=== PATIENT | female | born 1955 | race Caucasian/White ===

== ENCOUNTER → 2023-05-15 11:07 | Outpatient (REF) | payer MEDICARE, OTHER, SELFPAY ==
[2023-05-15 12:19] LABS: % Basophils 0.9 % (0-2); % Eosinophils 5.9 % (0-6); % Immature Granulocytes 0.2 % (0-0.5); % Lymphocytes 33.7 % (20.5-51.1); % Monocytes 8.8 % (1.7-9.3); % Neutrophils 50.5 % (42.2-75.2); Absolute Basophils 0.1 10^3/uL (0-0.2); Absolute Eosinophils 0.5 10^3/uL (0-0.7); Absolute Lymphocytes 2.9 10^3/uL (1.2-3.4); Absolute Monocytes 0.8 10^3/uL (0.1-0.6); Absolute Neutrophils 4.3 10^3/uL (1.4-6.5); Hemoglobin 14.5 g/dL (12.0-16.0); Mean Corpuscular Hgb 29.8 pg (27.0-31.0); Mean Corpuscular Volume 90.5 fL (81.0-99.0); Mean Platelet Volume 10.3 fL (7.4-10.4); Nucleated Red Blood Cells % 0 %; Platelet Count 279 10^3/uL (130-400); Red Blood Cell Count 4.86 10^6/uL (4.20-5.40); Red Cell Dist. Width 13.4 % (11.5-14.5); White Blood Cell Count 8.5 10^3/uL (4.8-10.8)
[2023-05-15 13:30] LABS: Erythrocyte Sed Rate 15 mm/hour (0-20)
== END ==
LOC: REG 11:07
PROVIDERS: ATTENDING PHYSICIAN Physician Assistant; FAMILY PHYSICIAN Family Medicine
DX: Z96.652 Presence of left artificial knee joint (principal); Z96.651 Presence of right artificial knee joint; M54.16 Radiculopathy, lumbar region
CPT/HCPCS: 36415; 85025; 85652; 86140

== ENCOUNTER → 2023-09-27 12:43 | Outpatient (REF) | payer MEDICARE, OTHER, SELFPAY | LOC: RCS 12:43 | PROVIDERS: ATTENDING PHYSICIAN Internal Medicine; FAMILY PHYSICIAN Nurse Practitioner Family | DX: I45.2 Bifascicular block (principal); I10 Essential (primary) hypertension | CPT/HCPCS: 93306 ==

== ENCOUNTER → 2024-04-03 14:00 | Outpatient (REF) | payer MEDICARE, OTHER, SELFPAY | LOC: HWWDC 14:00 | PROVIDERS: ATTENDING PHYSICIAN Nurse Practitioner Family | DX: Z12.31 Encounter for screening mammogram for malignant neoplasm of breast (principal) | CPT/HCPCS: 77063; 77067 ==

== ENCOUNTER → 2024-04-16 12:44 | Outpatient (REF) | payer MEDICARE, OTHER, SELFPAY | LOC: HWRAD 12:44 | PROVIDERS: ATTENDING PHYSICIAN Nurse Practitioner Family | DX: R42 Dizziness and giddiness (principal); R26.89 Other abnormalities of gait and mobility | CPT/HCPCS: 70450 ==

== ENCOUNTER → 2024-05-15 14:17 | Outpatient (REF) | payer MEDICARE, OTHER, SELFPAY | LOC: RCS 14:17 | PROVIDERS: ATTENDING PHYSICIAN Nurse Practitioner Gerontology; FAMILY PHYSICIAN Nurse Practitioner Family | DX: I63.81 Other cerebral infarction due to occlusion or stenosis of small artery (principal) | CPT/HCPCS: 93306 ==

== ENCOUNTER → 2024-05-17 10:37 | Outpatient (REF) | payer MEDICARE, OTHER, SELFPAY | LOC: RAD 10:37 | PROVIDERS: ATTENDING PHYSICIAN Nurse Practitioner Gerontology; REFERRING PHYSICIAN Nurse Practitioner Family | DX: R42 Dizziness and giddiness (principal); I63.81 Other cerebral infarction due to occlusion or stenosis of small artery | CPT/HCPCS: 93880 ==

== ENCOUNTER → 2024-05-29 08:46 | Outpatient (REF) | payer MEDICARE, OTHER, SELFPAY ==
[2024-05-29 09:43] LABS: HDL Cholesterol 85 mg/dl; LDL Cholesterol, Calculated 123 mg/dl; Total Cholesterol 230 mg/dl (50-199); Triglyceride 110 mg/dl (10-149); Very Low Density Lipoprotein 22 mg/dl (0-30)
== END ==
LOC: REG 08:46
PROVIDERS: ATTENDING PHYSICIAN Nurse Practitioner Gerontology; FAMILY PHYSICIAN Nurse Practitioner Family
DX: E78.00 Pure hypercholesterolemia, unspecified (principal)
CPT/HCPCS: 36415; 80061

== ENCOUNTER → 2024-07-23 14:21 | Outpatient (REF) | payer MEDICARE, OTHER, SELFPAY | LOC: RAD 14:21 | PROVIDERS: ATTENDING PHYSICIAN Nurse Practitioner Family | DX: J40 Bronchitis, not specified as acute or chronic (principal) | CPT/HCPCS: 71046 ==

== ENCOUNTER → 2024-10-14 14:03 | Outpatient (REF) | payer MEDICARE, OTHER, SELFPAY | LOC: HWRAD 14:03 | PROVIDERS: ATTENDING PHYSICIAN Obstetrics & Gynecology; FAMILY PHYSICIAN Nurse Practitioner Family | DX: R10.2 Pelvic and perineal pain (principal) | CPT/HCPCS: 76830; 76856 ==

== ENCOUNTER 2024-12-11 15:33 | Emergency (ER) | payer MEDICARE, OTHER, SELFPAY ==
[2024-12-11] VITALS (7 sets, daily range): BP systolic 135–198; BP diastolic 62–84
[2024-12-11 16:17] LABS: Hematocrit 44.1 % (37.0-47.0); Hemoglobin 14.3 g/dL (12.0-16.0); Mean Corp Hgb Conc. 32.4 g/dL (33.0-37.0); Mean Corpuscular Volume 92.5 fL (81.0-99.0); Nucleated Red Blood Cells % 0 %; Platelet Count 249 10^3/uL (130-400); Red Cell Dist. Width 13.7 % (11.5-14.5)
[2024-12-11 16:42] LABS: ALT (SGPT) 19 U/L (0-35); AST (SGOT) 24 U/L (14-36); Albumin 4.7 g/dl (3.5-5.0); Alkaline Phosphatase 92 U/L (38-126); Blood Urea Nitrogen 16 mg/dl (7-17); Calcium 9.4 mg/dl (8.4-10.2); Carbon Dioxide 29 mmol/L (22-30); Chloride 102 mmol/L (98-107); Glucose 85 mg/dl (70-99); Potassium 4.4 mmol/L (3.5-5.1); Sodium 135 mmol/L (135-145); Total Protein 8.1 g/dl (6.3-8.2); eGFR > 60.00
[2024-12-11 16:46] LABS: Troponin I 0.013 ng/ml
--- NOTE | 2024-12-11 18:52 | ED.GENMED ---
History of Present Illness
General
Chief Complaint: Cardiac Symptoms
Source: patient
Exam Limitations: none
Time Seen by Provider: 12/11/24 18:09
Nursing documentation reviewed up to this point in time: agreed with
History of Present Illness
History of Present Illness:
Patient is a 69-year-old female past medical history of stroke sleep apnea hypertension hyperlipidemia stroke presents to the ER for evaluation of chest pain. Patient is a very poor historian. She reports she was walking up steps and felt anterior
chest pain. She felt little short breath. She did take 1 baby aspirin and has been brought her to the ER. While in the room she still had the chest discomfort and felt some left-sided neck pain. She reports she does have some chronic use and it
is hard to tell what type of neck pain she is having. Presently on my exam patient has no chest pain.
Past History
Past History
ED Past Medical History: None
ED Past Surgical History: Other (ent)
Social History
Tobacco: Non-smoker
Alcohol: None
Drug: None
Personal:
Living: with family
Phy Exam
General Physical Exam
General Presentation: no apparent distress
General age: appears stated age
General Skin: warm and dry
General Habitus: normal
General Mental: alert
General Hydration: appears well hydrated
Cardiovascular Exam
Cardiovascular Exam: regular rate/rhythm, no murmur and normal peripheral pulses
Pulmonary Exam
Pulmonary Exam: lungs clear and no respiratory distress
Neurological Exam
Neurological Exam: alert and oriented x3
Musculoskeletal Exam
Musculoskeletal Exam: full ROM
Skin Exam
Skin Exam: normal color and warm/dry
Psychiatric Exam
Psychiatric Exam: normal mood/affect
Course
Orders/Labs/Results
Orders:
Orders
12/11/24 15:34
ECG [Electrocardiogram (*1)] Urgent
Reason for Study: Chest Pain
EKG- Treatment ONCE
12/11/24 16:00
CMP [Comprehensive Metabolic Panel] Urgent
Complete Blood Count/With Diff Urgent
Troponin I Urgent
12/11/24 19:07
Electrocardiogram (*1) Urgent
Reason for Study: Chest Pain
EKG- Treatment ONCE
12/11/24 19:12
Aspirin Chewable [Low Strength Aspirin] 243 mg PO NOW STA
12/11/24 19:13
Nitroglycerin Sublingual [Nitrostat (Sublingual)] 0.4 mg SL NOW STA
12/11/24 19:27
Chest [CR Chest - 2 Views ] Urgent
Comment:
Reason For Exam: cp
12/11/24 19:39
Troponin I Urgent
Abnormal Lab Results
12/11/24
16:00
MCHC 32.4 L g/dL
(33.0-37.0)
Absolute Monos (auto) 0.8 H 10^3/uL
(0.1-0.6)
Monocytes % 9.5 H %
(1.7-9.3)
12/11/24 16:00
12/11/24 16:00
Vital Signs
Initial and Last Documented VS:
Initial Vital Signs
Temp Pulse Resp BP Pulse Ox
98.6 F 62 20 198/84 97
12/11/24 15:42 12/11/24 15:42 12/11/24 15:42 12/11/24 15:42 12/11/24 15:42
Last Documented Vital Signs
Temp Pulse Resp BP Pulse Ox
98.2 F 66 16 164/67 95
12/11/24 22:08 12/11/24 22:08 12/11/24 22:08 12/11/24 22:08 12/11/24 22:08
Drug Abuse Treatment Specialist consulted with Physician
Drug Abuse Treatment Specialist consulted with physician?: Yes
Name of Physician Consulted: Tom
MDM/Problems Addressed
Differential Diagnosis Includes:
Not limited to ACS, musculoskeletal pain
MDM/Problems Addressed:
As documented patient is a 69-year-old female with history of hypertension hyperlipidemia poor historian described chest pain while walking up steps. During my exam she was chest pain-free however had complained of neck pain. She did not have neck
pain while walking up the stairs. She is a difficult historian however appears comfortable on exam in no acute distress . Patient had a previous EKG at cardiology office Case was discussed with cardiology and today's EKG was unchanged. She had 2
cardiac troponins here which were both unremarkable.
During my exam she did have some neck pain but this neck pain was very vague. Nitro was given and neck pain ultimately resolved.
We did discuss admission however patient would like to go home. She is currently asymptomatic
Case reviewed with ED physician will place on chest pain hotline. Patient was given strict return precautions
Chronic conditions affecting care:
Hypertension hyperlipidemia
*Radiology
Radiology exam reviewed: radiology read reviewed
*Pulse Oximetry
SaO2: 97
Oxygen Mode of Delivery: Room air
Patient hypoxic: no
*EKG
Interpreted by ED Provider?: Yes
Heart Rate: 71
Rate: normal
Rhythm: sinus
Ischemia: non-specific ST changes
*Critical Care Note
Total Time (30-74mins, 75-104mins- exclusive of procedures): Not Applicable
Patient Management
Discussion with other providers: Cl[employer] (cardiology, DR Zuluaga)
ED Attending Note
-
Portions of this chart may have been created with voice recognition software.� Occasional wrong word or��sound alike� substitutions may have occurred due to the inherent limitations of voice recognition software.
Discharge Plan
Departure
Patient Disposition: Home (Routine Discharge)
Date of Disposition: 12/11/24
Time of Disposition: 21:41
Patient with high blood pressure during this ER visit?: Yes
Condition: Fair
Covid-19: Not Applicable
Discharge Problem:
Chest pain
Instructions: Chest Pain (DC), Chest Pain CBC Follow Up, BLOOD PRESSURE
Prescriptions:
No Action
levothyroxine 25 MCG tablet
25 mcg PO Q48H
fluticasone propionate 1 SPRAY spray,suspension
1 spray intranasal PRN PRN (Reason: allergies)
levothyroxine 50 MCG tablet
50 mcg PO Q48H
cholestyramine (bulk) 5 GM powder
4 gm PO PRN PRN (Reason: LOOSE STOOL)
hydrochlorothiazide 25 MG tablet
25 mg PO DAILY
ibuprofen 200 MG tablet
400 tab PO PRN PRN (Reason: PAIN)
celecoxib 200 MG capsule
200 mg PO PRN PRN (Reason: leg swelling)
lorazepam 0.5 MG tablet
0.5 mg PO HSPRN PRN (Reason: sleep)
naproxen sodium [Aleve] 220 MG tablet
220 mg PO PRN PRN (Reason: Pain)
zolpidem 10 MG tablet
10 mg PO HSPRN PRN (Reason: SLEEP)
Patient Comments:
A few weeks ago pr patient.
cetirizine 10 MG tablet
10 mg PO DAILY
latanoprost 0.005 % Drops
1 drp OPHTHALMIC (EYE) QPM
fexofenadine-pseudoephedrine [Julienne-D 24 Hour] 180-240 mg Tablet Extended Release 24 Hr
1 tab PO DAILY PRN (Reason: allergies)
DayQuil Allergy 12-HR
1 dose PO PRN PRN (Reason: allergies)
NyQuil
1 tab PO HS PRN (Reason: allergies)
Referrals:
Dejuan Zuluaga MD [Active, Cardiology]
UNKNOWN - PT DOES,NOT KNOW [Unknown Provider]
Activity Restrictions/Additional Instructions:
You were placed on the chest pain hotline. You should receive a phone call from cardiology office in the next 1 to 2 days. If you do not please call the office to schedule an appointment as soon as possible. Return if any worsening of symptoms
including any chest pain shortness of breath or any further concerns.
Interventions
Interventions:
*Risk Screen - Suicide Last Done: 12/11/24 15:42
*General Assessment Last Done: 12/11/24 18:30
*Neglect/Abuse Screening Last Done: 12/11/24 15:42
*ED- Fall Risk Assessment Last Done: 12/11/24 18:30
*ED COVID-19 Vaccine History Last Done: 12/11/24 15:42
*ED Influenza Vaccine History Last Done: 12/11/24 15:42
*Nursing Disposition Last Done: 12/11/24 22:08
ED- Pulmonary Assessment Last Done: 12/11/24 18:30
ED- Cardiac Assessment Last Done: 12/11/24 18:30
Discharge Date and Time
Discharge Date/Time: 12/11/24 22:13
Print Language: ROMANIAN
[2024-12-11] MEDS: LOW STRENGTH ASPIRIN 243 MG PO (19:28)
[2024-12-11] MEDS: NITROSTAT (SUBLINGUAL) 0.4 MG SL (19:28)
[2024-12-11 20:08] LABS: Troponin I 0.012 ng/ml
== END 2024-12-11 22:13 | disposition home or self-care (01) ==
LOC: EMR 15:33
PROVIDERS: Nurse Practitioner; EMERGENCY PHYSICIAN Student in an Organized Health Care Education/Training Program; FAMILY PHYSICIAN Nurse Practitioner Family
DX: R07.89 Other chest pain (principal); I10 Essential (primary) hypertension; E78.5 Hyperlipidemia, unspecified; G47.30 Sleep apnea, unspecified; Z86.73 Personal history of transient ischemic attack (TIA), and cerebral infarction without residual deficits
CPT/HCPCS: 99285; 71046; 80053; 84484; 85025; 93005

== ENCOUNTER → 2025-01-21 13:58 | Outpatient (REF) | payer MEDICARE, OTHER, SELFPAY | LOC: RAD 13:58 | PROVIDERS: ATTENDING PHYSICIAN Nurse Practitioner Family | DX: R07.9 Chest pain, unspecified (principal) | CPT/HCPCS: 71275; Q9967 ==